=== PATIENT | male | born 1950 | race Caucasian/White ===

== ENCOUNTER 2016-08-10 07:23 | Emergency (ER) | payer OTHER ==
[~2016-08-10] VITALS: Ht 182.9 cm; Wt 109.7 kg
[~2016-08-10 07:23] MED LIST: ERYT1O LEFT EYE; OMEP20CA5 PO
[2016-08-10 07:30] VITALS: BP 196/127; PULSE 96; RESP 18; TEMP 98.9; O2SAT 99
[2016-08-10] MEDS ORDERED: OMEP20TA PO (07:40)
[2016-08-10 07:43] VITALS: BP 199/118; PULSE 94; RESP 17; O2SAT 98
[2016-08-10 07:49] VITALS: BP 197/114; O2SAT 98
--- NOTE | 2016-08-10 07:52 | PD ---
HPI Chief Complaint: Headache Time Seen by Provider: 07:47 Travel History International Travel<30 days: No Contact w/Intl Traveler<30days: No Traveled to known affect area: No History of Present Illness HPI 66-year-old male with history of hypertension, noncompliant with blood pressure medications because of side effects, had a sinus infection last week which was treated with Augmentin, presents to the ER today for ongoing headaches for the last week which she states feels like flashing sharp pains that comes from the temporal area and preauricular area lasting a few seconds at a time. He denies any nausea, vomiting, vision change, stiff neck, fevers, or any other symptoms. He does not have significant history of headaches. Modifying Factors: None Associated Signs & Symptoms: Intermittent headaches Risk Factors: History of hypertension PFSH Past Medical History Cardiovascular Problems: Yes (HTN) COPD: Yes Diabetes: No Diminished Hearing: No Diverticulitis: Yes GERD: Yes Hypertension: Yes Musculoskeletal: No Neurologic: Yes (TINNITUS) Reproductive: No Respiratory: No Immunizations Current: Yes Past Surgical History Cardiac Surgery: No Ear Surgery: No Endocrine Surgery: No Eye Surgery: No Genitourinary Surgery: No Gynecologic Surgery: No Oral Surgery: No Thoracic Surgery: No Tonsillectomy: Yes Other Surgery: Yes (HEMRRHOIDECTOMY) Social History Alcohol Use: Yes ("DAILY MUCH I CAN") Tobacco Use: Yes (1.5 PPD) Substance Use: No Allergies-Medications (Allergen,Severity, Reaction): Coded Allergies: No Known Allergies (Verified , 01/05/15) Reported Meds & Prescriptions Reported Meds & Active Scripts Active Reported Omeprazole 20 Mg Tab 20 Mg PO DAILY Review of Systems Except as stated in HPI: all other systems reviewed are Neg Physical Exam Narrative GENERAL: Well-nourished, well-developed elderly white male patient in no acute distress. Awake and oriented 3. SKIN: Warm and dry. HEAD: Atraumatic. Normocephalic. No temporal or scalp tenderness. EYES: No scleral icterus. No injection or drainage. EARS: Bilateral pinnae and external canals appear within normal limits. Bilateral tympanic membranes without erythema, dullness or perforation. NECK: Supple, trachea midline. CARDIOVASCULAR: Regular rate and rhythm without murmurs, gallops, or rubs. RESPIRATORY: Breath sounds equal bilaterally. No accessory muscle use. GASTROINTESTINAL: Abdomen soft, non-tender, nondistended. MUSCULOSKELETAL: No cyanosis, or edema. BACK: Nontender without obvious deformity. No CVA tenderness. Data Data Last Documented VS Vital Signs Date Time Temp Pulse Resp B/P Pulse Ox O2 Delivery O2 Flow Rate FiO2 08/10/16 08:33 82 18 166/94 99 08/10/16 07:49 Room Air 08/10/16 07:30 98.9 Orders Complete Blood Count With Diff (08/10/16 07:47) Basic Metabolic Panel (Bmp) (08/10/16 07:47) Westergren Sedimentation Rate (08/10/16 07:47) C-Reactive Protein (Crp) (08/10/16 07:47) Ct Brain W/O Iv Contrast(Rout) (08/10/16 07:47) Ecg Monitoring (08/10/16 07:47) Iv Access Insert/Monitor (08/10/16 07:47) Oximetry (08/10/16 07:47) Sodium Chloride 0.9% Flush (Ns Flush) (08/10/16 08:00) Ondansetron Inj (Zofran Inj) (08/10/16 08:00) Hydromorphone Pf Inj (Dilaudid Pf Inj) (08/10/16 08:00) Clonidine (Catapres) (08/10/16 08:00) Electrocardiogram (08/10/16 08:39) Labs Laboratory Tests Test 08/10/16 08:00 White Blood Count 7.7 TH/MM3 Red Blood Count 4.84 MIL/MM3 Hemoglobin 14.5 GM/DL Hematocrit 42.8 % Mean Corpuscular Volume 88.5 FL Mean Corpuscular Hemoglobin 29.9 PG Mean Corpuscular Hemoglobin 33.8 % Concent Red Cell Distribution Width 12.6 % Platelet Count 273 TH/MM3 Mean Platelet Volume 7.8 FL Neutrophils (%) (Auto) 65.0 % Lymphocytes (%) (Auto) 18.7 % Monocytes (%) (Auto) 12.2 % Eosinophils (%) (Auto) 0.4 % Basophils (%) (Auto) 3.7 % Neutrophils # (Auto) 5.1 TH/MM3 Lymphocytes # (Auto) 1.4 TH/MM3 Monocytes # (Auto) 0.9 TH/MM3 Eosinophils # (Auto) 0.0 TH/MM3 Basophils # (Auto) 0.3 TH/MM3 CBC Comment DIFF FINAL Differential Comment Erythrocyte Sedimentation Rate 21 mm/hr Sodium Level 136 MEQ/L Potassium Level 4.0 MEQ/L Chloride Level 102 MEQ/L Carbon Dioxide Level 24.2 MEQ/L Anion Gap 10 MEQ/L Blood Urea Nitrogen 15 MG/DL Creatinine 1.30 MG/DL Estimat Glomerular Filtration 55 ML/MIN Rate Random Glucose 107 MG/DL Calcium Level 8.5 MG/DL C-Reactive Protein LESS THAN 0.29 MG/DL MDM Medical Decision Making Medical Screen Exam Complete: Yes Emergency Medical Condition: Yes Medical Record Reviewed: Yes Interpretation(s) EKG shows NSR, no ST elevation or depression, and no arrhythmias. No significant T-wave inversions. Laboratory Tests Test 08/10/16 08:00 Monocytes (%) (Auto) 12.2 % (0.0-8.0) Basophils (%) (Auto) 3.7 % (0.0-2.0) Basophils # (Auto) 0.3 TH/MM3 (0-0.2) Erythrocyte Sedimentation Rate 21 mm/hr (0-20) Estimat Glomerular Filtration 55 ML/MIN (>89) Rate Random Glucose 107 MG/DL (74-106) Last [address] 08/10/16 7822 Signed Impressions: Service Date/Time: Wednesday, August 10, 2016 08:17 - CONCLUSION: 1. No evidence of acute intracranial pathology. No masses are identified. Serjio Tolentino MD Differential Diagnosis Intermittent headaches, elevated blood pressurehypertensive urgency versus temporal arteritis versus viral illness versus tic [place] Narrative Course EKG did not show any signs of acute ST-T changes. No metabolic issues were identified on lab work. No significant signs of renal effects. CT of the brain did not show any signs of acute processes as a cause of this headache. Patient was given Dilaudid for pain and clonidine blood pressure. On reevaluation at 9:30 AM, he is feeling improved and his blood pressures improved. At this point, I do not see any signs of end organ issues related to her blood pressure. I suspect he may have some problems with tic [place] considering the symptoms. My plan would be to give him symptomatic relief and blood pressure control and have him follow-up with primary care doctor. Return for any worsening in symptoms as necessary. The plan has been discussed with him and he states understanding. Diagnosis Primary Impression: HEADACHE Additional Impression: Poorly-controlled hypertension Med/Other Pt SpecificInfo: Prescription(s) given Scripts Hydrocodone-Acetaminophen (Lortab)5-325 Mg Tab1-2 Tab PO Q6H PRN (PAIN) #20 TAB Ref 0 Prov:Lela Quinteros MD 08/10/16 Clonidine 0.2 Mg Tab0.2 Mg PO BID #20 TAB Ref 0 Prov:Lela Quinteros MD 08/10/16 Disposition: 01 DISCHARGE HOME Condition: Stable Lela Quinteros MD Aug 10, 2016 07:52
[2016-08-10] MEDS ORDERED: HYDROmorphone HCL PF 1 MG/ML VIAL IVS ONE (08:00)
[2016-08-10] MEDS ORDERED: SODIUM CHLORIDE 0.9% FLUSH 5 ML FLUSH IVF PRN (08:00)
[2016-08-10] MEDS ORDERED: cloNIDine HCL 0.2 MG TAB PO ONE (08:00)
[2016-08-10] MEDS ORDERED: ONDANSETRON HCL 4 MG/2 ML VIAL IVP ONE (08:00)
[2016-08-10 08:13] LABS: CHLORIDE 102 MEQ/L (98-107); SODIUM (NA) 136 MEQ/L (136-145)
[2016-08-10 08:14] LABS: AUTOMATED NEUTROPHIL # 5.1 TH/MM3 (1.8-7.7); BASOPHIL # 0.3 TH/MM3 (0-0.2); BASOPHIL % 3.7 % (0.0-2.0); EOSINOPHIL % 0.4 % (0.0-4.0); HEMATOCRIT 42.8 % (39.0-51.0); HEMO FLAGS DIFF FINAL; LYMPH % 18.7 % (9.0-44.0); LYMPHOCYTE # 1.4 TH/MM3 (1.0-4.8); MEAN CELL VOLUME 88.5 FL (80.0-100.0); MEAN CORPUSCULAR HEMOGLOBIN 29.9 PG (27.0-34.0); MEAN CORPUSCULAR HGB CONC 33.8 % (32.0-36.0); MONO % 12.2 % (0.0-8.0); PLATELET COUNT 273 TH/MM3 (150-450); RED BLOOD COUNT 4.84 MIL/MM3 (4.50-5.90); RED CELL DISTRIBUTION WIDTH 12.6 % (11.6-17.2); WHITE BLOOD COUNT 7.7 TH/MM3 (4.0-11.0)
[2016-08-10 08:16] LABS: ANION GAP 10 MEQ/L (5-15); BICARBONATE 24.2 MEQ/L (21.0-32.0); BLOOD UREA NITROGEN 15 MG/DL (7-18)
[2016-08-10 08:19] LABS: GLOMERULAR FILTRATION RATE 55 ML/MIN (>89)
--- NOTE | 2016-08-10 08:31 | RADHPO ---
EXAM DATE/TIME: 08/10/2016 08:17 [facility] COMPARISON: CT BRAIN W/O CONTRAST, February 15, 2014, 12:43. INDICATIONS : Sharp, stabbing head pain for one week. RADIATION DOSE: 56.19 CTDIvol (mGy) MEDICAL HISTORY : Hypertension. Gastroesophageal reflux disease. Chronic obstructive pulmonary disease. SURGICAL HISTORY : Tonsillectomy. ENCOUNTER: Initial ACUITY: 1 week PAIN SCALE: 8/10 LOCATION: cranial TECHNIQUE: Multiple contiguous axial images were obtained of the head. Using automated exposure control and adj ustment of the mA and/or kV according to patient size, radiation dose was kept as low as reasonably a chievable to obtain optimal diagnostic quality images. FINDINGS: CEREBRUM: The ventricles are normal for age. No evidence of midline shift, mass lesion, hemorrhage or acute in farction. No extra-axial fluid collections are seen. POSTERIOR FOSSA: The cerebellum and brainstem are intact. The 4th ventricle is midline. The cerebellopontine angle i s unremarkable. EXTRACRANIAL: The visualized portion of the orbits is intact. SKULL: The calvaria is intact. No evidence of skull fracture. CONCLUSION: 1. No evidence of acute intracranial pathology. No masses are identified. Serjio Tolentino MD on August 10, 2016 at 8:28 Board Certified Radiologist. This report was verified electronically.
[2016-08-10 08:33] VITALS: BP 166/94; PULSE 82; RESP 18; O2SAT 99
[2016-08-10] MEDS ORDERED: HYDR-3533 PO (09:49)
[2016-08-10] MEDS ORDERED: CLON0.2T PO (09:49)
[2016-08-10 10:04] VITALS: BP 169/98
--- NOTE | 2016-08-10 18:03 | EKG ---
Date Performed: 08/10/2016 Time Performed: 08:44:24 PTAGE: 66 years EKG: Sinus rhythm Inferior T wave changes are nonspecific When compared to previous tracing, the patient is no longer Tachycardic. Borderline ECG PREVIOUS TRACING : 12/12/2008 09.15 DOCTOR: Delfina Hernandez Interpretating Date/Time 08/10/2016 18:03:00
== END 2016-08-10 10:06 | disposition home or self-care (01) ==
LOC: PHED 07:23
DX: R51 Headache (principal); I10 Essential (primary) hypertension; F17.200 Nicotine dependence, unspecified, uncomplicated
CPT/HCPCS: 70450; 80048; 85025; 85652; 86140; 93005; 96374; 96375; 99284; J1170; J2405

== ENCOUNTER 2016-08-20 14:52 | Emergency (ER) | payer OTHER ==
[~2016-08-20] VITALS: Ht 177.8 cm; Wt 105.0 kg
[~2016-08-20 14:52] MED LIST changes: +CLON0.2T PO; -ERYT1O LEFT EYE; +HYDR-3533 PO; -OMEP20CA5 PO; +OMEP20TA PO
[2016-08-20 14:53] VITALS: BP 215/112; PULSE 92; RESP 20; TEMP 98.1; O2SAT 98
== END 2016-08-20 16:34 | disposition left against medical advice (07) ==
LOC: NED 14:52
DX: R53.1 Weakness (principal)
CPT/HCPCS: 99281